=== PATIENT | male | born 1960 | race Caucasian/White ===

== ENCOUNTER 2025-05-19 14:44 | Outpatient (REF) | payer BC, SELFPAY ==
--- NOTE | ~2025-05-19 | XR_ITS ---
EXAMINATION: XR LUMBOSACRAL SPINE WITH OBLIQUES CLINICAL INFORMATION: M54.9 - Dorsalgia, unspecified COMPARISON: None available. TECHNIQUE: AP, both oblique, and lateral views of the lumbar spine. Lateral view of the lumbosacral junction. FINDINGS: Multilevel marginal osteophyte formation and endplate sclerosis and decreased intervertebral disc height. Dextroconvex rotoscoliosis apex at L3. Rudimentary ribs at T12. Grade 1 retrolisthesis at L2-3, L3-4 and L4-5 levels likely related to scoliosis. No acute cortical disruption. No lytic or blastic lesions. Vascular calcifications, aorta. XR/XR lumbar spine 4V min IMPRESSION: Dextroconvex rotoscoliosis and multilevel thoracolumbar spondylosis resulting in grade 1 retrolisthesis L2-3, L3-4 and L4-5 levels. Electronically signed by: Dillon Rodriguez MD 05/19/2025 03:51 PM EDT
== END 2025-05-19 14:45 | disposition home or self-care (01) ==
LOC: HO.XRAY 14:44
PROVIDERS: PCP Internal Medicine; Visit Provider Nurse Practitioner Family
DX: M51.369 Other intervertebral disc degeneration, lumbar region without mention of lumbar back pain or lower extremity pain (principal); M47.816 Spondylosis without myelopathy or radiculopathy, lumbar region; M43.16 Spondylolisthesis, lumbar region; M41.9 Scoliosis, unspecified; M54.50 Low back pain, unspecified; G89.29 Other chronic pain
CPT/HCPCS: 72110

== ENCOUNTER 2025-05-19 14:44 | Outpatient (AMB) | payer BC, SELFPAY ==
--- NOTE | 2025-05-19 14:48 | A.OFFVIS_ITS ---
Vital Signs 05/19/25 14:52 Height 6 ft 1 in Weight 237 lb BMI 31.3 BP 142/79 H Blood Pressure Location Lt brachial Position Sitting Pulse 58 Pulse Source Pulse Oximeter Pulse Oximetry (%) 97 Oxygen Delivery Method Room Air Intake Visit Reasons: LOW BACK PAIN Intake Note: Pain today 04/02 Mobile Manager Required: No Accompanied by: Self / Same As Patient Allergies No Known Allergies Allergy (Verified 05/19/25 14:52) Medication List - Last Reconciled 05/19/25 by NANCIE Cline amlodipine 10 mg PO DAILY atorvastatin 10 mg PO DAILY metoprolol succinate ER 50 mg PO DAILY tadalafil (Cialis) 10 mg PO DAILY PRN tamsulosin 0.4 mg PO BEDTIME HPI Comments Details: The patient is a 64-year-old male presenting with chronic low back pain. The patient reports experiencing back pain for approximately 30 years, initially related to a work injury. The pain is described as aching, sore, and heavy, with a severity of 8/10, worsening during the day and slightly improving at bedtime. The pain does not radiate to the legs and is separate from knee pain. The patient has been diagnosed with degenerative disc disease and osteoarthritis, which exacerbate the back pain, especially during activities such as bending, walking, and crawling for work at [employer]. He has undergone various treatments, including injections and massage therapy, which provide only temporary relief. He has not had recent imaging studies, but previous evaluations indicated issues at L3-L4-L5. The patient underwent right knee meniscus surgery six months ago, which required drainage due to swelling. He reports that the knee is currently better managed, although it required additional intervention post-surgery. The patient maintains an active lifestyle, engaging in daily gym activities, including sit-ups and cycling, and has a geriatric personal care aide twice a week. He does not smoke or consume alcohol but drinks two to three cups of coffee daily. - Onset: Approximately 30 years ago, related to a work injury - Quality: Aching, sore, heavy - Severity: 8/10, worse during the day, better at bedtime - Location: Lower back, separate from right knee pain - Exacerbating factors: Bending, walking, crawling - Relieving factors: Temporary relief from injections and massage therapy - Interference: Affects daily activities, lifting, walking, sitting, standing - Affect: Pain impacts social life, work, and home activities - Analgesia: Uses melatonin for sleep, temporary relief from injections and massage therapy - Adverse Effects: None reported - Activities of Daily Living: Pain affects lifting, walking, sitting, standing - Aberrant Drug Related Behaviors: None reported Oswestry low back disability score=20 [facility] Medical History (Updated 05/21/25 @ 20:08 by NANCIE Cline) Lumbar degenerative disc disease Lumbar spondylosis Lumbar scoliosis Erectile dysfunction Hyperlipidemia Psoriasis Hypertension Osteoarthritis Sleep apnea Chronic back pain OCD (obsessive compulsive disorder) Review of Systems Const Details: - Musculoskeletal: Reports chronic low back pain, denies radiculopathy, numbness, tingling - Neurological: Denies numbness, tingling, weakness, instability, bladder or bowel dysfunction or saddle anesthesia All systems reviewed & are unremarkable except as noted in HPI and below Physical Exam Vital Signs: Last Vital Signs Pulse 58 05/19/25 14:52 BP 142/79 H 05/19/25 14:52 Pulse Ox 97 05/19/25 14:52 Oxygen Delivery Method Room Air 05/19/25 14:52 BMI result Body Mass Index 31.3 General: Appears afebrile. Alert and oriented. Mood and affect appropriate. Follows and participates in conversation appropriately. Respiratory effort is unlabored. No cough. Able to transition from sit to stand unassisted. Ambulates with bilaterally normal heel strike and toe off. General: Yes no CVA tenderness Back/Spine/Pelvis Other: Limited lumbar ROM due to pain. Lumbar extension and axial rotations reproduce moderate pain. Flexion is intact and reproduces mild symptoms Demonstrates 5/5 strength of quadriceps bilaterally as well as flexion/dorsiflexion of bilateral feet against resistance. 2+ pedal pulses bilaterally. Straight leg rise with dorsiflexion negative bilaterally. Facet loading test positive bilaterally. Ry sign, Rios?s and Stinchfield tests are negative bilaterally. No groin pain with I/E hip rotations. Valsalva maneuver negative. Back: no CVA tenderness Cervical Spine: cervical ROM normal, cervical muscular tenderness and No Cervical spine tenderness Thoracic/Lumbar Spine: thoracic and lumbar spine normal to inspection, No Thoracic/lumbar spine scar(s), Lasegue's sign negative, straight leg raise negative bilaterally, pain with thoraco-lumbar ROM, paraspinal muscle tenderness, thoraco-lumbar ROM limited, Thoracic/lumbar scoliosis, No thoracic spinal tenderness and lumbar spinal tenderness at L4 and at L5 Sacroiliac joints: bilaterally nontender Extrem General: Yes capillary refill normal, Yes no clubbing, cyanosis or edema and Yes no calf tenderness Results Reviewed Results Reviewed: XR LUMBOSACRAL SPINE WITH OBLIQUES 05/19/25 CLINICAL INFORMATION: M54.9 - Dorsalgia, unspecified COMPARISON: None available. TECHNIQUE: AP, both oblique, and lateral views of the lumbar spine. Lateral view of the lumbosacral junction. FINDINGS: Multilevel marginal osteophyte formation and endplate sclerosis and decreased intervertebral disc height. Dextroconvex rotoscoliosis apex at L3. Rudimentary ribs at T12. Grade 1 retrolisthesis at L2-3, L3-4 and L4-5 levels likely related to scoliosis. No acute cortical disruption. No lytic or blastic lesions. Vascular calcifications, aorta. IMPRESSION: Dextroconvex rotoscoliosis and multilevel thoracolumbar spondylosis resulting in grade 1 retrolisthesis L2-3, L3-4 and L4-5 levels. Assessment & Plan Assessment & Plan (1) Chronic back pain: Code(s): M54.9 - Dorsalgia, unspecified; G89.29 - Other chronic pain Category: Medical (2) Lumbar spondylosis: Code(s): M47.816 - Spondylosis without myelopathy or radiculopathy, lumbar region Category: Medical (3) Lumbar degenerative disc disease: Code(s): M51.369 - Other intervertebral disc degeneration, lumbar region without mention of lumbar back pain or lower extremity pain Category: Medical (4) Spondylolisthesis, lumbar region: Code(s): M43.16 - Spondylolisthesis, lumbar region Category: Medical (5) Lumbar scoliosis: Code(s): M41.9 - Scoliosis, unspecified Category: Medical Plan I discussed with the patient the potential benefits and risks of medial branch blocks for potential peripheral nerve stimulation and radiofrequency ablation for managing chronic low back pain. Lumbar spine x-rays were updated after today's visit. We will proceed with diagnostic bilateral L3-L4 DR L5 MBB with local and fluoroscopy. Expectations, risks and benefits were reviewed. Patient is aware he will be contacted to schedule this procedure. Continue daily physical activity as tolerated, weight optimization, adequate hydration, activity modifications, and good posture. All questions and concerns have been answered and patient agreed with the treat ent plan. Follow up after injections and sooner as needed. Patient was informed and verbally consented to the use of an ambient scribe for clinic note documentation during this visit. Orders: Orders XR lumbar spine 4V min 05/19/25 G89.29 - Other chronic pain, M47.816 - Spondylosis without myelopathy or radiculopathy, lumbar region, M51.369 - Other intervertebral disc degeneration, lumbar region without mention of lumbar back pain or lower extremity pain, M54.9 - Dorsalgia, unspecified Coding Level of Care Code New Pt Level 4 (69492) Diagnoses Chronic back pain M54.9; G89.29 Lumbar spondylosis M47.816 Lumbar degenerative disc disease M51.369 Spondylolisthesis, lumbar region M43.16 Lumbar scoliosis M41.9
[2025-05-19 14:52] VITALS: BP 142/79; PULSE 58; O2SAT 97; BMI 31.3
--- OUTSIDE RECORDS SUMMARY | 2025-05-19 15:37 | XMS_ITS | Clinical Summary ---
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 Name Role Phone Unavailable Primary Care Provider Unavailabl e Social History Tobacco Use Types Packs/Day Years Used Date Smoking Tobacco: Never Assessed Sex and Gender Information Value Date Recorded Sex Assigned at Not on file Legal Sex Male 3:25 PM EDT Gender Identity Not on file Sexual Orientation Not on file Plan of Treatment Health Maintenance Due Date Last Done Comments Hepatitis C Virus Screening 1960 DTaP/Tdap/Td Vaccines (1 - Tdap) 1977 Pneumococcal Vaccines 50+ (1 of 1 - PCV) 2008 Zoster (Shingles) Vaccine (1 of 2) 2008 COVID-19 Vaccine ( - 2023-2 5 season) 2024 RSV Vaccine 60 years and old er and Patients (1 - 1-dose 75+ series) 2033 Hepatitis B Vaccines Aged Out No long er eligible based on patient's age to complete this topic
--- OUTSIDE RECORDS SUMMARY | 2025-05-19 15:37 | XMS_ITS | Patient Health Record ---
Author Organization [facility] Address [address] [facility] [address] [place] [address] Care Team Providers Care Peach Grower Name Role Phone Ezio Chau Primary Care Provider Unavailabl e Allergies No Known Allergies Reason For Referral No Information Medications Medication SIG (Take, Route, Frequency, Duration) Notes Start Date End Date Status Tamsulosin HCl 0.4 MG 1 capsule Orally O nce a day Active amLODIPine Besylate 10 MG 1 tablet Orall y Once a day Active Atorvastatin Calcium 10 MG 1 tablet Oral ly Once a day Active Plan Of Treatment Pending Test Test Name Order Date X ray : Ankle, left, 3 views 12/14/2020 INJ TENDON SHEATH/LIGAMENT/FASCIA 2020 Medications Administered Medication Instructions Date of Administration Dosage Notes Dexamethasone 12/14/2020 2 mg Kenalog 12/14/2020 20 mg Medical (General) History Medical History History ICD Code Apnea Back Pain Erectile Dysfunction Hyperlipidemia Hypertension Obesity Obsessive-compulsive disorder Prostatism Psoriasis COVID vaccinated X 2 (Moderna) Surgical History Surgery Date(Month/Year) left ankle ORIF 08/2017
== END 2025-05-19 15:44 | disposition home or self-care (01) ==
PROVIDERS: PCP Internal Medicine; Visit Provider Nurse Practitioner Family
DX: M54.9 Dorsalgia, unspecified (principal); G89.29 Other chronic pain; M47.816 Spondylosis without myelopathy or radiculopathy, lumbar region; M51.369 Other intervertebral disc degeneration, lumbar region without mention of lumbar back pain or lower extremity pain; M43.16 Spondylolisthesis, lumbar region; M41.9 Scoliosis, unspecified
CPT/HCPCS: 99204

== ENCOUNTER → 2025-05-19 15:25 | Outpatient (BNV) | payer BC, SELFPAY | PROVIDERS: PCP Internal Medicine; Visit Provider Radiology Diagnostic Radiology | DX: M47.815 Spondylosis without myelopathy or radiculopathy, thoracolumbar region (principal) | CPT/HCPCS: 72110 ==